=== PATIENT | male | born 1955 | race Two or more races ===

== ENCOUNTER 2019-03-04 09:45 | Inpatient (IN) | payer OTHER ==
[~2019-03-04] VITALS: Ht 182.9 cm; Wt 117.9 kg
[2019-03-04] MEDS ORDERED: AVAPRO300 MG PO (10:19)
[2019-03-04] MEDS ORDERED: PROAIR RESPICL90 MCG IH (12:38)
[2019-03-11] MEDS ORDERED: TYLENOL ARTHRI650 MG PO (16:38)
== END 2019-03-11 17:09 | disposition home or self-care (01) | DRG 349 ==
LOC: O/R 09:45 → SURH 03-10 06:44
PROVIDERS: ADMIT Surgery
PROC: 0DBP7ZZ Excision of Rectum, Via Natural or Artificial Opening (ICD-10-PCS; principal; 2019-03-10 07:00)
DX: C20 Malignant neoplasm of rectum (principal); I10 Essential (primary) hypertension

== ENCOUNTER 2019-06-08 06:45 | Day surgery (SDC) | payer OTHER ==
[~2019-06-08 06:45] MED LIST: AVAPRO300 MG PO; PROAIR RESPICL90 MCG IH; TYLENOL ARTHRI650 MG PO
== END 2019-06-08 12:20 | disposition home or self-care (01) ==
LOC: AMB-ENDOS 06:45 → ADM 13:30
DX: D12.3 Benign neoplasm of transverse colon (principal); K57.30 Diverticulosis of large intestine without perforation or abscess without bleeding

== ENCOUNTER 2020-05-23 09:05 | Day surgery (SDC) | payer OTHER | END 2020-05-23 13:40 | disposition home or self-care (01) | LOC: AMB-ENDOS 09:05 | PROVIDERS: ATTEND Surgery | DX: D12.3 Benign neoplasm of transverse colon (principal); D12.4 Benign neoplasm of descending colon; D12.0 Benign neoplasm of cecum; D12.8 Benign neoplasm of rectum; Z20.822 Contact with and (suspected) exposure to COVID-19 ==

== ENCOUNTER 2021-10-25 10:15 | Inpatient (IN) | payer OTHER ==
[~2021-10-25] VITALS: Ht 182.9 cm; Wt 122.5 kg
[2021-10-25] MEDS ORDERED: AVAPRO75 MG PO (12:17)
[2021-10-28] MEDS ORDERED: METRONIDAZ500 MG/100 PO (11:49)
[2021-10-28] MEDS ORDERED: CIPROFLOXA400 MG/200 PO (11:49)
[2021-10-28] MEDS ORDERED: OXYCODONE HCL5 MG PO (11:50)
== END 2021-10-28 13:15 | disposition home or self-care (01) | DRG 349 ==
LOC: ADM 10:15 → EDSTATUS 10:15 → SURH 10:15 → O/R 10-27 07:05 → SURH 10-27 09:00 → SURG 10-27 16:17
PROVIDERS: ADMIT Surgery; ATTEND Surgery
PROC: 0DBP7ZZ Excision of Rectum, Via Natural or Artificial Opening (ICD-10-PCS; principal; 2021-10-27 09:00)
DX: C20 Malignant neoplasm of rectum (principal); Z20.822 Contact with and (suspected) exposure to COVID-19

== ENCOUNTER 2024-08-28 11:30 | Day surgery (SDC) | payer OTHER ==
[2024-08-25 11:56] VITALS: BP 115/67
[2024-08-25 12:19] LABS: BASO % 0.4 % (0.1-1.2); EOS # 0.12 (0.04-0.54); EOS % 1.5 % (0.7-7.0); HEMATOCRIT 40.4 % (40.1-51.0); LYMPH # 0.96 (1.18-3.74); LYMPH % 11.7 % (19.3-53.1); MEAN CORPUSCULAR HEMOGLOBIN 28.8 pg (25.6-32.2); MONO # 0.64 (0.24-0.82); MONO % 7.8 % (4.7-12.5); NEUT # 6.42 (1.56-6.13); NEUT % 78.4 % (34.0-71.1); PLATELET COUNT 256 K/uL (163-369); RED BLOOD COUNT 4.51 M/uL (4.63-6.08)
[2024-08-25 12:26] LABS: INR 1.16; PARTIAL THROMBOPLASTIN TIME 30.2 SECONDS (22.0-34.0); PROTHROMBIN TIME 12.5 SECONDS (9.0-11.5)
[2024-08-25 12:55] LABS: URINE APPEARANCE Clear; URINE BACTERIA > 9821.5 uL (0.0-1933); URINE BILIRRUBIN Negative (NEGATIVE); URINE BLOOD Negative; URINE COLOR Yellow; URINE GLUCOSE >=1000 MG/DL (NEGATIVE); URINE KETONE Negative (NEGATIVE); URINE LEUKOCYTE Trace; URINE NITRATE Negative; URINE PROTEIN Trace (NEGATIVE); URINE UROBILINOGEN 0.2 E.U./dl; URINE WBC 36.8 uL (0.0-23.2)
[2024-08-25 13:04] LABS: CALCIUM 9.3 mg/dL (8.5-10.1); CREATININE SERUM 0.6 mg/dL (0.70-1.30); GFR 134.38; PHOSPHOROUS 2.9 mg/dL (2.5-4.9); POTASSIUM 4.56 mEq/L (3.5-5.1)
[2024-08-25 13:32] LABS: BILIRUBIN TOTAL 0.79 mg/dL (0.3-1.2); GLOBULINA 3.8 G/DL (2.4-3.5); TOTAL PROTEIN 7.8 gm/dL (6.4-8.2)
[~2024-08-28] VITALS: Ht 182.9 cm; Wt 88.5 kg
[~2024-08-28 11:30] MED LIST changes: +AVAPRO75 MG PO; +CIPROFLOXA400 MG/200 PO; +EZALLOR SPRINKLE5 MG; +METRONIDAZ500 MG/100 PO; +OXYCODONE HCL5 MG PO
[2024-08-28] MEDS ORDERED: LIDOCAINE HCL 1%/EPINEPHRINE 20ML VIAL IJ ONE (14:15)
[2024-08-28] MEDS ORDERED: BUPIVACAINE HCL 30 ML VIAL IJ ONE (14:30)
[2024-08-28] MEDS ORDERED: TRAM1TAB98 PO (14:30)
[2024-08-28] MEDS ORDERED: HEPARIN SODIUM,PORCINE 0.5 UNITS/ML SYRINGE IJ ONE (14:30)
[2024-08-28] MEDS ORDERED: CEFAZOLIN SODIUM 1,000 MG VIAL IV ONE (14:30)
== END 2024-08-28 16:10 | disposition home or self-care (01) ==
LOC: CIR.AMB 11:30
PROVIDERS: ATTEND Surgery
DX: C20 Malignant neoplasm of rectum (principal); Z91.013 Allergy to seafood
CPT/HCPCS: 36561; C1751